=== PATIENT | female | born 1990 | race Caucasian/White ===

== ENCOUNTER 2022-03-07 18:10 | Emergency (ER) | payer SELFPAY ==
[~2022-03-07] VITALS: Ht 162.6 cm; Wt 99.3 kg
--- NOTE | 2022-03-07 18:10 | NUR ---
RECEVED PT 31 YRS female came from home c/o dizzness after HD YSTERDAY
--- NOTE | 2022-03-07 18:15 | NUR ---
SEEN BY DR. JACKSON
--- NOTE | 2022-03-07 18:20 | NUR ---
ADeb FREDERICKT ON RT UPPER ARM WITH GOOD BRUIT LAST HD ON 03/06/22
[2022-03-07] MEDS ORDERED: ONDANSETRON 4 MG TAB.RAPDIS ONE (18:41)
[2022-03-07] MEDS ORDERED: ONDANSETRON 4 MG TAB.RAPDIS PO ONE (19:00)
--- NOTE | 2022-03-07 19:20 | NUR ---
HAND OFF MONICA HEIN
--- NOTE | 2022-03-07 19:28 | NUR ---
TO CT SCAN OF HEAD
--- NOTE | 2022-03-07 19:34 | NUR ---
PATIENT CAME BACK FROM CT SCAN. PATIENT IS [id number]. ABLE TO MAKE NEEDS KNOWN. PER AM SHIFT. PATIENT HAS VERY DIFFICULT VEIN. WAS NOT ABLE TO PUT PERIPHERAL LINE. MEDS ON PO. VITALS CHECKED. 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
[2022-03-07 20:01] LABS: BASOPHILS % (AUTO) 0.3 % (0.0-2.0); EOSINOPHILS % (AUTO) 1.2 % (0.0-6.0); HEMATOCRIT 35 % (33-45); HEMOGLOBIN 11.8 g/dL (11.5-14.8); LYMPHOCYTES # (AUTO) 1.2 K/uL (0.8-4.8); LYMPHOCYTES % (AUTO) 13.3 % (20.0-44.0); MEAN CORPUSCULAR HGB CONC 33 g/dl (31.0-36.0); MEAN CORPUSCULAR VOLUME 91 fL (82-100); MONOCYTES # (AUTO) 0.3 K/uL (0.1-1.30); MONOCYTES % (AUTO) 2.9 % (2.0-12.0); NEUTROPHILS # (AUTO) 7.6 K/uL (1.8-8.9); NEUTROPHILS % (AUTO) 82.3 % (43.0-81.0); PLATELET COUNT (AUTO) 131 K/uL (150-450); RED BLOOD CELL COUNT(AUTO) 3.89 MIL/uL (4.0-5.2); WHITE BLOOD COUNT (AUTO) 9.3 K/uL (4.3-11.0)
[2022-03-07 20:03] LABS: CALCIUM, SERUM 9.4 mg/dL (8.5-10.1); POTASSIUM 3.9 mmol/L (3.5-5.1)
--- NOTE | 2022-03-07 20:08 | NUR ---
Creatinine 10.2
[2022-03-07 20:09] LABS: ALBUMIN 4.2 g/dL (3.4-5.0); BILIRUBIN,DIRECT 0.2 mg/dL (0.0-0.2); BILIRUBIN,TOTAL 0.7 mg/dL (0.2-1.0); CREATININE 10.2 mg/dL (0.6-1.3); TOTAL PROTEIN, SERUM 8.5 g/dL (6.4-8.2)
--- NOTE | 2022-03-07 21:11 | NUR ---
Patient discharged to home in stable condition. Written and verbal after care instructions given. Patient verbalizes understanding of instruction.
[2022-03-07 21:12] VITALS: BP 112/72
== END 2022-03-07 21:12 | disposition home or self-care (01) ==
LOC: ER 18:12
DX: R55 Syncope and collapse (principal); I12.0 Hypertensive chronic kidney disease with stage 5 chronic kidney disease or end stage renal disease; N18.6 End stage renal disease; Z99.2 Dependence on renal dialysis
CPT/HCPCS: 99285; 70450; 71045; 93005; 85025; 80048; 80076; 36415; 85730; 82962; Q0162

== ENCOUNTER 2023-06-28 07:59 | Emergency (ER) | payer MEDICARE, OTHER ==
[~2023-06-28] VITALS: Ht 162.6 cm; Wt 99.3 kg
[2023-06-28] MEDS: ACETAMINOPHEN ES 500 MG TABLET PO ONE (08:30)
[2023-06-28] MEDS: IV NS 0.9% 500 ML BAG IV ONE (08:30)
[2023-06-28] MEDS: ONDANSETRON HCL/PF - ER 4 MG/2 ML VIAL IV ONE (08:30)
[2023-06-28 09:52] LABS: APPEARANCE,URINE CLOUDY (CLEAR); BILIRUBIN,URINE NEGATIVE (NEGATIVE); BLOOD, URINE 2+ Ery/uL (NEGATIVE); COLOR,URINE YELLOW (YELLOW); KETONES,URINE NEGATIVE (NEGATIVE); LEUKOCYTE ESTERASE ,URINE NEGATIVE (NEGATIVE); NITRITE, URINE POSITIVE (NEGATIVE); PH,URINE 8.5 (5.0-8.0); PROTEIN,URINE 2+ mg/dl (NEGATIVE); UGLUCOSE 1+ mg/dL (NEGATIVE); UROBILINOGEN,URINE 0.2 EU/dL (0.2)
[2023-06-28] MEDS ORDERED: ACETAMINOPHEN ES 500 MG TABLET ONE (10:20)
[2023-06-28] MEDS ORDERED: ONDANSETRON HCL/PF 4 MG/2 ML VIAL ONE (10:20)
[2023-06-28 10:23] LABS: CALCIUM, SERUM 8.9 mg/dL (8.5-10.1); POTASSIUM 4.1 mmol/L (3.5-5.1)
[2023-06-28 10:25] LABS: ADD URINE CULTURE YES; BACTERIA,URINE Many /HPF (None Seen); SQUAMOUS EPITHELIAL CELL,UR Moderate /HPF (None Seen)
[2023-06-28 10:28] LABS: CREATININE 9.4 mg/dL (0.6-1.3)
[2023-06-28 11:41] LABS: BASOPHILS % (AUTO) 0.4 % (0.0-2.0); EOSINOPHILS # (AUTO) 0.1 K/uL (0.0-0.7); EOSINOPHILS % (AUTO) 1.7 % (0.0-6.0); HEMATOCRIT 27 % (33-45); HEMOGLOBIN 9.4 g/dL (11.5-14.8); LYMPHOCYTES # (AUTO) 0.9 K/uL (0.8-4.8); LYMPHOCYTES % (AUTO) 18.3 % (20.0-44.0); MEAN CORPUSCULAR HEMOGLOBIN 29 PG (26.0-33.0); MEAN CORPUSCULAR HGB CONC 34 g/dl (31.0-36.0); MEAN CORPUSCULAR VOLUME 85 fL (82-100); MONOCYTES # (AUTO) 0.3 K/uL (0.1-1.30); NEUTROPHILS # (AUTO) 3.6 K/uL (1.8-8.9); NEUTROPHILS % (AUTO) 73.6 % (43.0-81.0); PLATELET COUNT (AUTO) 91 K/uL (150-450); RED BLOOD CELL COUNT(AUTO) 3.21 MIL/uL (4.0-5.2); RED CELL DISTRIBUTION WIDTH 15.5 % (11.5-15.0); WHITE BLOOD COUNT (AUTO) 4.8 K/uL (4.3-11.0)
[2023-06-28] MEDS ORDERED: HYDROCODONE/APAP 5/325MG TABLET ONE (12:05)
[2023-06-28] MEDS: HYDROCODONE/APAP 5/325MG TABLET PO ONE (12:07)
[2023-06-28] MEDS ORDERED: CEPH500C2 PO (12:13)
[2023-06-28 12:31] VITALS: BP 135/80; TEMP 98.1; O2SAT 100
[2023-06-28 17:39] LABS: EOSINOPHILS % (MANUAL) 2 % (0-4); LYMPHOCYTES % (MANUAL) 22 % (16-48); MONOCYTES % (MANUAL) 5 % (0-11.0); NEUTROPHILS % (MANUAL) 71 (42-76)
[2023-06-28 17:40] LABS: PLATELET ESTIMATE DECREASED
== END 2023-06-28 12:31 | disposition home or self-care (01) ==
LOC: ER 08:35
DX: N39.0 Urinary tract infection, site not specified (principal); R42 Dizziness and giddiness; R51.9 Headache, unspecified; R10.2 Pelvic and perineal pain; I12.0 Hypertensive chronic kidney disease with stage 5 chronic kidney disease or end stage renal disease; N18.6 End stage renal disease; F41.9 Anxiety disorder, unspecified; Z99.2 Dependence on renal dialysis
CPT/HCPCS: 99284; 96374; 93005; 85025; 80048; 87086; 81001; 36415; 84702; 85007; J2405 ×2; J7030